=== PATIENT | female | born 1995 | race Caucasian/White ===

== ENCOUNTER 2024-07-27 10:40 | Outpatient (CLI) | payer OTHER ==
[2024-07-27 11:19] LABS: PH,URINE 5.5 (5.0-8.0); URINE APPEARANCE Clear; URINE BILIRRUBIN Negative (NEGATIVE); URINE BLOOD Negative; URINE COLOR Yellow; URINE GLUCOSE Negative (NEGATIVE); URINE KETONE Trace (NEGATIVE); URINE LEUKOCYTE Negative; URINE NITRATE Negative; URINE PROTEIN Negative (NEGATIVE); URINE UROBILINOGEN 0.2 E.U./dl
[2024-07-27 11:22] LABS: URINE BACTERIA 1452.8 uL (0.0-1933); URINE CAST 0.29 uL (0.0-1.40); URINE EPITHELIAL CELLS 55.8 uL (0.0-38.8); URINE RBC 5.7 uL (0.0-20.8); URINE WBC 6.6 uL (0.0-23.2)
[2024-07-27 11:41] LABS: HEMATOCRIT 36.8 % (36.0-45.00); HEMOGLOBIN 12.5 g/dL (12.0-15.00); MEAN CORPUSCULAR HEMOGLOBIN 29.2 pg (27.00-32.0); MEAN CORPUSCULAR HGB CONC 33.9 g/dl (32.0-36.0); PLATELET COUNT 284 K/uL (150-450); RED BLOOD COUNT 4.28 M/uL (4.00-6.00); RED CELL DISTRIBUTION WIDTH 12.5 % (11.5-14.5)
[2024-07-27 12:28] LABS: ALBUMIN 3.9 gm/dL (3.4-5.0); BILIRUBIN TOTAL 0.4 mg/dL (0.3-1.2); CALCIUM 9.2 mg/dL (8.5-10.1); CHOL HDL RATIO 2.8 (0-5.0); CREATININE SERUM 0.75 mg/dL (0.55-1.02); GFR 92.01; GLOBULINA 3.9 G/DL (2.4-3.5); POTASSIUM 4.09 mEq/L (3.5-5.1); TOTAL PROTEIN 7.8 gm/dL (6.4-8.2); TSH 2.9 uIU/mL (0.358-3.74)
== END 2024-07-27 14:48 | disposition home or self-care (01) ==
LOC: LAB 10:40
PROVIDERS: ATTEND General Practice
DX: E78.2 Mixed hyperlipidemia (principal); R30.0 Dysuria; E03.9 Hypothyroidism, unspecified; E11.69 Type 2 diabetes mellitus with other specified complication; E55.9 Vitamin D deficiency, unspecified

== ENCOUNTER 2024-07-27 11:29 | Outpatient (CLI) | payer OTHER | END 2024-07-27 13:59 | disposition home or self-care (01) | LOC: TOM 11:29 | PROVIDERS: ATTEND General Practice | DX: M79.671 Pain in right foot (principal); M79.672 Pain in left foot; G44.001 Cluster headache syndrome, unspecified, intractable ==

== ENCOUNTER 2024-10-31 09:03 | Outpatient (CLI) | payer OTHER ==
[2024-11-03 05:07] LABS: LEUTEINIZING HORMONE 6.9 mIU/mL (.); PROLACTIN 18.7 ng/mL (4.8-33.4)
== END 2024-10-31 09:08 | disposition home or self-care (01) ==
LOC: LAB 09:03
PROVIDERS: ATTEND Obstetrics & Gynecology
DX: N92.1 Excessive and frequent menstruation with irregular cycle (principal); E24.1 Nelson's syndrome; N92.2 Excessive menstruation at puberty

== ENCOUNTER 2025-04-13 13:42 | Outpatient (CLI) | payer OTHER ==
[2025-04-13 15:15] LABS: RH POSITIVE
== END 2025-04-13 13:48 | disposition home or self-care (01) ==
LOC: LAB 13:42
PROVIDERS: ATTEND Obstetrics & Gynecology
DX: Z34.80 Encounter for supervision of other normal pregnancy, unspecified trimester (principal)